=== PATIENT | female | born 1995 | race Two or more races ===

== ENCOUNTER 2020-02-16 00:19 | Observation (INO) | payer MEDICAID ==
[~2020-02-16] VITALS: Ht 160 cm; Wt 78.0 kg
== END 2020-02-16 01:23 | disposition home or self-care (01) ==
LOC: 8 EST LDRP 00:19 → OBSVTOIN 00:19 → INTOOBSV 00:19
PROVIDERS: ADMIT Obstetrics & Gynecology; ATTEND Obstetrics & Gynecology
DX: O9A.213 Injury, poisoning and certain other consequences of external causes complicating pregnancy, third trimester (principal); O99.891 Other specified diseases and conditions complicating pregnancy; M54.5 Low back pain; Z3A.30 30 weeks gestation of pregnancy
CPT/HCPCS: 59025; G0378; 99281

== ENCOUNTER 2020-02-16 01:30 | Emergency (ER) | payer MEDICAID ==
[~2020-02-16] VITALS: Ht 167.6 cm; Wt 60.0 kg
[2020-02-16] MEDS ORDERED: BACITRACIN ZINC OINT UDPKT TOP ONE (01:45)
[2020-02-16] MEDS ORDERED: LIDOCAINE 1%/EPI 1:100,000 10 ML VIAL IJ ONE (01:45)
[2020-02-16] MEDS ORDERED: TETANUS, DIPHTHERIA, PERTUSSIS VAC/PF 0.5ML (>7YR OLD) IM ONE (01:45)
[2020-02-16 02:58] VITALS: BP 120/75
== END 2020-02-16 03:03 | disposition home or self-care (01) ==
LOC: ER 01:30
DX: S01.01XA Laceration without foreign body of scalp, initial encounter (principal); Y07.03 Male partner, perpetrator of maltreatment and neglect; Y04.8XXA Assault by other bodily force, initial encounter; Y93.89 Activity, other specified; Y92.89 Other specified places as the place of occurrence of the external cause; R03.0 Elevated blood-pressure reading, without diagnosis of hypertension
CPT/HCPCS: 99282

== ENCOUNTER 2021-11-14 00:46 | Emergency (ER) | payer BC ==
[~2021-11-14] VITALS: Ht 160 cm; Wt 89.0 kg
[2021-11-14 01:11] VITALS: BP 123/84
[2021-11-14] MEDS ORDERED: TOPUD PO (08:39)
[2021-11-14] MEDS ORDERED: ONDA4TAB50 PO (08:39)
== END 2021-11-14 02:51 | disposition left against medical advice (07) ==
LOC: ER 00:46
DX: Z53.21 Procedure and treatment not carried out due to patient leaving prior to being seen by health care provider (principal)

== ENCOUNTER 2021-11-14 05:53 | Emergency (ER) | payer BC ==
[~2021-11-14] VITALS: Ht 160 cm; Wt 89.0 kg
[2021-11-14 05:55] VITALS: BP 124/84
[2021-11-14] MEDS ORDERED: ONDANSETRON HCL 4MG/2ML INJ IV STA (06:32)
[2021-11-14] MEDS ORDERED: KETOROLAC 30MG/ML VIAL IV STA (06:32)
[2021-11-14 08:10] LABS: BASOPHILS % 0.6 % (0.0-2.0); EOSINOPHILS % 0.1 % (0.0-5.0); HEMATOCRIT. 29.6 % (36.0-48.0); HEMOGLOBIN. 8.7 g/dL (12.0-16.0); LYMPHOCYTES % 13.7 % (20.0-50.0); MEAN CORPUSCULAR HEMOGLOBIN 15.9 pg (28.0-32.0); MEAN CORPUSCULAR VOLUME 53.9 fL (81.0-99.0); MEAN PLATELET VOLUME 8.8 fl (7.4-10.4); NEUTROPHILS % 82.6 % (40.0-76.0); PLATELET 525 x1000/uL (130-400); RED BLOOD CELL COUNT 5.49 mill/uL (4.2-5.4); RED CELL DISTRIBUTION WIDTH 20.6 % (11.6-14.6)
[2021-11-14 08:15] LABS: CHLORIDE 106 mEq/L (98-107)
[2021-11-14 08:23] LABS: HCG SCREEN NEGATIVE
[2021-11-14] MEDS ORDERED: ONDA4TAB50 PO (08:39)
[2021-11-14] MEDS ORDERED: TOPUD PO (08:39)
[2021-11-14 09:02] LABS: CLARITY URINE CLOUDY (CLEAR); COLOR URINE DARK YELLOW (YELLOW); KETONES URINE TRACE (NEGATIVE); LEUKOCYTE ESTERASE URINE 2+ (NEGATIVE); NITRITE URINE NEGATIVE (NEGATIVE); OCCULT BLOOD URINE NEGATIVE (NEGATIVE); PROTEIN URINE 1+ (NEGATIVE); SPECIFIC GRAVITY URINE 1.027 (1.005-1.030)
[2021-11-14 09:42] LABS: PLATELET ESTIMATE INCREASED
== END 2021-11-14 09:06 | disposition home or self-care (01) ==
LOC: ER 05:53
DX: R10.13 Epigastric pain (principal); R11.10 Vomiting, unspecified
CPT/HCPCS: 36415; 80053; 81003; 81025; 83690; 84703; 85025; 85610; 87086; 96374; 96375; 99284; J1885; J2405

== ENCOUNTER 2022-12-13 18:19 | Emergency (ER) | payer BC, MEDICAID ==
[~2022-12-13] VITALS: Ht 165.1 cm; Wt 67.0 kg
[~2022-12-13 18:19] MED LIST: ONDA4TAB50 PO; TOPUD PO
[2022-12-13 18:27] VITALS: BP 105/71; O2SAT 98
[2022-12-13] MEDS ORDERED: LIDOCAINE 5% PATCH TOP SCH (19:30)
[2022-12-13] MEDS ORDERED: ACETAMINOPHEN 325MG TABLET PO ONE (19:30)
[2022-12-13] MEDS ORDERED: ACET-2708 MT (21:22)
[2022-12-13 21:42] VITALS: PULSE 89; RESP 16; TEMP 98.5
== END 2022-12-13 21:44 | disposition home or self-care (01) ==
LOC: ER 18:19
DX: S09.90XA Unspecified injury of head, initial encounter (principal); S20.219A Contusion of unspecified front wall of thorax, initial encounter; M25.512 Pain in left shoulder; Y04.0XXA Assault by unarmed brawl or fight, initial encounter; Y93.89 Activity, other specified; Y92.89 Other specified places as the place of occurrence of the external cause; Y99.8 Other external cause status
CPT/HCPCS: 71045; 73030; 99284

== ENCOUNTER 2025-03-11 19:01 | Emergency (ER) | payer MEDICAID ==
[~2025-03-11] VITALS: Ht 160 cm; Wt 77.0 kg
[~2025-03-11 19:01] MED LIST changes: +ACET-2708 MT
[2025-03-11 19:30] VITALS: TEMP 37; O2SAT 100
[2025-03-11 20:09] LABS: HEMATOCRIT. 26.9 % (36.0-48.0); HEMOGLOBIN. 7.2 g/dL (12.0-16.0); MEAN PLATELET VOLUME 8.3 fl (7.4-10.4); PLATELET 396 x1000/uL (130-400); RED BLOOD CELL COUNT 5.33 mill/uL (4.2-5.4); RED CELL DISTRIBUTION WIDTH 21.8 % (11.6-14.6)
[2025-03-11 20:31] LABS: CREATININE 0.7 mg/dL (0.6-1.0); UREA NITROGEN BLOOD 10 mg/dL (9-23)
[2025-03-11 20:33] LABS: ASPARTATE AMINOTRANSFERASE 16 IU/L (<34); BILIRUBIN DIRECT 0.1 mg/dL (<=3.0); BILIRUBIN TOTAL 0.4 mg/dL (0.1-1.0); PROTEIN TOTAL 8.2 g/dL (6.0-8.3)
[2025-03-11 20:47] LABS: EOSINOPHILS % MANUAL 1.0 % (0.0-5.0); LYMPHOCYTES % MANUAL 26.0 % (20.0-60.0); MONOCYTES % MANUAL 2.0 % (2.0-8.0); NEUTROPHILS % MANUAL 71.0 % (45.0-75.0); PLATELET ESTIMATE NORMAL
[2025-03-11] MEDS: ONDANSETRON 4MG ODT PO ONE (22:25)
[2025-03-11] MEDS: MAGNESIUM/ALUMINUM HYDROXIDE/SIMETHICONE 30ML UDC PO ONE (22:26)
[2025-03-11 22:39] LABS: CLARITY URINE CLEAR (CLEAR); COLOR URINE YELLOW (YELLOW); GLUCOSE URINE NEGATIVE (NEGATIVE); KETONES URINE NEGATIVE (NEGATIVE); LEUKOCYTE ESTERASE URINE NEGATIVE (NEGATIVE); NITRITE URINE NEGATIVE (NEGATIVE); OCCULT BLOOD URINE NEGATIVE (NEGATIVE); PH URINE 8.5 (4.5-8.0); PROTEIN URINE NEGATIVE (NEGATIVE); SPECIFIC GRAVITY URINE 1.022 (1.005-1.030); UROBILINOGEN URINE 1.0 E.U./dL (0.2-1.0)
[2025-03-11 22:54] LABS: HCG SCREEN NEGATIVE
[2025-03-11] MEDS ORDERED: DICY-18 MT (23:07)
[2025-03-11] MEDS ORDERED: ONDA-239 PO (23:07)
[2025-03-11 23:28] VITALS: BP 120/75; PULSE 89; RESP 16; O2SAT 99
== END 2025-03-11 23:29 | disposition home or self-care (01) ==
LOC: ER 19:01
DX: K29.70 Gastritis, unspecified, without bleeding (principal); D50.9 Iron deficiency anemia, unspecified
CPT/HCPCS: 36415; 80048; 80076; 81003; 81025; 84703; 85025; 99283